=== PATIENT | male | born 1990 ===

== ENCOUNTER 2018-12-02 11:35 | Emergency (ER) | payer BC, MEDICAID ==
[2018-12-02 11:42] VITALS: RESP 16; O2SAT 100
[2018-12-02] MEDS ORDERED: Oxycodone/Acetaminophen 5/325 mg Tab PO ONE (11:59)
--- NOTE | 2018-12-02 12:03 | ED PDOC ---
HPI: General Adult Chief Complaint (Provider): left facial abscess Additional History Per: Patient Additional Complaint(s): This is 28 y/o male with no significant PMH comes to the ER c/o few month hx of a bump near left ear. As per patient, his girlfriend tried to pop that area 1 week ago, lots of pus and liquid came out from the area, since than patient is c/o progressively worsening pain, swelling and mild erythema. Pain is 9/10, non- radiating, denies any fever. PMH: Denies PSH: Denies Allg: NKDA Meds: None FH: + DM SH: Smokes hookah, social alcohol use and denies drug use <Kacy Parnell - Last Filed: 12/02/18 13:28> <Elisha Lan - Last Filed: 12/02/18 15:11> Time Seen by Provider: 12/02/18 11:47 Chief Complaint (Nursing): Abnormal Skin Integrity Supervising Attending Note - Supervising Attending Note The Documented history was done by the: Physician Mail Handler Sorter The documented physical exam was done by the: Physician Mail Handler Sorter The documented procedures were done by the: Physician Mail Handler Sorter - Attestation: I have personally seen and examined this patient.: Yes I have fully participated in the care of the patient.: Yes I have reviewed all pertinent clinical information, including history, physical exam and plan: Yes - Notes: Notes:: Evaluated patient and oversaw procedure. No complications. Pt tolerated procedure without complications. Follow up discussed and wound culture sent. <Elisha Lan - Last Filed: 12/02/18 15:11> Past Medical History Vital Signs: Last Vital Signs Temp 97.2 F L 12/02/18 11:42 Pulse 69 12/02/18 11:42 Resp 16 12/02/18 11:42 BP 124/71 12/02/18 11:42 Pulse Ox 100 12/02/18 11:42 - Medical History Other PMH: none - Surgical History Surgical History: No Surg Hx - Family History Family History: States: No Known Family Hx - Living Arrangements Living Arrangements: With Family - Social History Current smoker - smoking cessation education provided: Yes <Kacy Parnell - Last Filed: 12/02/18 13:28> Vital Signs: Last Vital Signs Temp 98.5 F 12/02/18 13:18 Pulse 64 12/02/18 13:18 Resp 16 12/02/18 13:18 BP 125/76 12/02/18 13:18 Pulse Ox 100 12/02/18 13:28 <Elisha Lan - Last Filed: 12/02/18 15:11> - Home Medications Home Medications: Ambulatory Orders Medication Instructions Recorded RX: No Known Home Med 12/02/18 - Allergies Allergies/Adverse Reactions: Allergies Allergy/AdvReac Type Severity Reaction Status Date / Time No Known Allergies Allergy Verified 12/02/18 11:47 Review of Systems Constitutional: Negative for: Fever Eyes: Negative for: Pain ENT: Positive for: Ear Pain. Negative for: Ear Discharge, Nose Pain, Nose Discharge Cardiovascular: Negative for: Chest Pain Respiratory: Negative for: Cough, Shortness of Breath Gastrointestinal: Negative for: Nausea, Vomiting, Abdominal Pain Genitourinary Male: Negative for: Dysuria, Incontinence Musculoskeletal: Negative for: Neck Pain Skin: Negative for: Rash Neurological: Negative for: Weakness Psych: Negative for: Anxiety <Kacy Parnell - Last Filed: 12/02/18 13:28> Physical Exam - Physical Exam Appears: Positive for: No Acute Distress Head Exam: Positive for: NORMAL INSPECTION Skin: Positive for: Normal Color (left facial abscess right infront of left ear, about 1 cm ) Eye Exam: Positive for: Normal appearance ENT: Positive for: Normal ENT Inspection (left facial abscess right infront of left ear, about 1 cm ) Neck: Positive for: Normal Cardiovascular/Chest: Positive for: Regular Rate, Rhythm. Negative for: JVD Respiratory: Positive for: Normal Breath Sounds. Negative for: Decreased Breath Sounds Gastrointestinal/Abdominal: Positive for: Soft. Negative for: Tenderness Back: Positive for: Normal Inspection Extremity: Positive for: Normal ROM <Kacy Parnell - Last Filed: 12/02/18 13:28> - ECG O2 Sat by Pulse Oximetry: 100 - Progress ED Course And Treament: A/P: 28 y/o male with left facial abscess right infront of left ear. - Percocet STAT - I & D - Reevaluation Case discussed and patient seen with Dr. Lan - I&D performed: See procedure - Patient agrees with discharge plan - F/u after 48 hours discussed - ER precautions discussed with patient and family Re-evaluation Time: 13:26 Condition: Improving,but remains with symptoms <Kacy Parnell - Last Filed: 12/02/18 13:28> Medical Decision Making Medical Decision Making: left facial abscess, right infront of left ear <Kacy Parnell - Last Filed: 12/02/18 13:28> Procedures - Time-Out Type of Procedure: incision and drainage of abscess Site of Procedure: Left facial abscess, near left ear Correct Patient (with visual ID + MR# on ID Band): Yes Correct Procedure: Yes Correct Site Marked: Yes Medication Reconciliation / Bloodwork / Allergies Checked: Yes Physician Name: Dr. Lan and Dr. Parnell, PGY-II - Incision and Drainage Site: Left facial abscess, near left ear Blade Size: 11 I & D Procedure: betadine prep, sterile drapes applied, sterile dressing applied Progress: - Incision and Drainage of left facial abscess Incision/Drainage Performed by: Dr. Lan and Dr. Parnell, PGY-II Consent: Verbal consent obtained. Risks and benefits: risks, benefits and alternatives were discussed Consent given by: patient Time out: Immediately prior to procedure a "time out" was called to verify the correct patient, procedure, equipment, it support specialist and site/side marked as required. Type: Facial abscess Location details: Left facial abscess, in-front of left ear, 1x1cm Anesthesia: local infiltration Local anesthetic: lidocaine 2% with epinephrine Anesthetic total: 4cc Patient sedated: no Scalpel size: 11 Incision type: single straight Complexity: simple Drainage purulent Drainage amount: moderate with foul smell, culture was done Wound treatment: Dressing was done Patient tolerance: Patient tolerated the procedure well with no immediate complications Dr. Parnell, PGY-II <Kacy Parnell - Last Filed: 12/02/18 13:28> Disposition - Patient ED Disposition Is Patient to be Admitted: No - Disposition Disposition: Routine/Home Disposition Time: 13:12 (ER precautions discussed with patient, f/u with PMD in 2 days or return to ED) <Kacy Parnell - Last Filed: 12/02/18 13:28> <Elisha Lan - Last Filed: 12/02/18 15:11> - Clinical Impression Clinical Impression: Facial abscess - Disposition Referrals: [facility] [Provider Group] Condition: STABLE Instructions: Boil, Skin Abscess, Abscess Incision and Drainage, Abscess Incision and Drainage (DC), How to Keep Track of Your Drainage Forms: [employer] (Kazakh) Print Language: TONGAN
[2018-12-02] MEDS ORDERED: Lidocaine 2% w Epi 1:100,000 Inj IJ ONE (12:12)
[2018-12-02] MEDS ORDERED: Oxycodone/Acetaminophen 5/325 mg Tab ONE (12:15)
[2018-12-02 13:19] VITALS: BP 125/76; PULSE 64; TEMP 98.5
== END 2018-12-02 13:18 | disposition home or self-care (01) ==
LOC: H.ER 11:35
DX: L02.01 Cutaneous abscess of face (principal); Z83.3 Family history of diabetes mellitus